=== PATIENT | female | born 1965 | race Two or more races ===

== ENCOUNTER 2020-06-21 07:15 | Emergency (ER) | payer OTHER ==
[~2020-06-21] VITALS: Ht 165.1 cm; Wt 88.5 kg
[2020-06-21] MEDS ORDERED: ATIVAN0.5 M1 PO (07:46)
[2020-06-21] MEDS ORDERED: PROTONIX40 MG PO (07:47)
[2020-06-21] MEDS ORDERED: NEURONTIN300 MG PO (07:47)
[2020-06-21] MEDS ORDERED: RESTORIL15 M1 PO (07:48)
[2020-06-21] MEDS ORDERED: INDERAL LA80 MG (07:48)
[2020-06-21] MEDS ORDERED: METFORMIN HCL1000 MG (07:50)
[2020-06-21] MEDS ORDERED: VOLTAREN100 GM (07:51)
[2020-06-21] MEDS ORDERED: ZESTORETIC 20-1 EAC1 (07:51)
[2020-06-21] MEDS ORDERED: WELLBUTRIN SR100 MG (07:52)
[2020-06-21] MEDS ORDERED: ZETIA10 MG (07:52)
[2020-06-21] MEDS ORDERED: BUTALBIT-ACETA1 EACH PO (13:09)
== END 2020-06-21 13:45 | disposition home or self-care (01) ==
LOC: ER 07:15
DX: S00.03XA Contusion of scalp, initial encounter (principal); S30.0XXA Contusion of lower back and pelvis, initial encounter; M54.2 Cervicalgia; W01.198A Fall on same level from slipping, tripping and stumbling with subsequent striking against other object, initial encounter; Y93.89 Activity, other specified; Y92.832 Beach as the place of occurrence of the external cause; Y99.8 Other external cause status

== ENCOUNTER 2023-09-25 08:00 | Outpatient (CLI) | payer OTHER ==
[~2023-09-25 08:00] MED LIST: ATIVAN0.5 M1 PO; BUTALBIT-ACETA1 EACH PO; INDERAL LA80 MG; METFORMIN HCL1000 MG; NEURONTIN300 MG PO; PROTONIX40 MG PO; RESTORIL15 M1 PO; VOLTAREN100 GM; WELLBUTRIN SR100 MG; ZESTORETIC 20-1 EAC1; ZETIA10 MG
[2023-09-25] MEDS ORDERED: LIPITOR40 M1 PO (12:49)
[2023-09-25] MEDS ORDERED: VOLTAREN (12:50)
[2023-09-25] MEDS ORDERED: CYMBALTA60 MG PO (12:51)
== END 2023-09-25 08:01 | disposition home or self-care (01) ==
LOC: LAB 08:00 → ADM 11:45 → EDSTATUS 09-29 11:45 → CIR.AMB 09-29 11:45 → EDSTATUS 10-01 11:45 → SURH 10-01 11:45
PROVIDERS: ATTEND Orthopaedic Surgery Orthopaedic Surgery of the Spine
DX: M50.022 Cervical disc disorder at C5-C6 level with myelopathy (principal); M50.023 Cervical disc disorder at C6-C7 level with myelopathy; U07.1 COVID-19; Z03.818 Encounter for observation for suspected exposure to other biological agents ruled out; Z20.828 Contact with and (suspected) exposure to other viral communicable diseases

== ENCOUNTER 2023-11-02 11:30 | Inpatient (IN) | payer OTHER ==
[~2023-11-02] VITALS: Ht 165.1 cm; Wt 86.6 kg
[~2023-11-02 11:30] MED LIST changes: +CYMBALTA60 MG PO; +LIPITOR40 M1 PO; +VOLTAREN
[2023-11-02 11:46] VITALS: BP 138/83
[2023-11-05] MEDS ORDERED: VANCOMYCIN HCL 1,000 MG VIAL ONE ×2 (06:25→08:15)
[2023-11-05] MEDS ORDERED: CEFAZOLIN SODIUM 1,000 MG VIAL ONE ×2 (06:26→16:34)
[2023-11-05] MEDS ORDERED: 0.9 % SODIUM CHLORIDE 1,000 ML IV SCH (07:30)
[2023-11-05] MEDS ORDERED: ENALAPRILAT DIHYDRATE 1.25 MG/ML VIAL IV PRN (07:30)
[2023-11-05] MEDS ORDERED: PROMETHAZINE HCL 50 MG/ML AMPUL IM PRN (07:30)
[2023-11-05] MEDS ORDERED: ISOPROPYL ALCOHOL 30 ML OUNCE TOP ONE (07:41)
[2023-11-05] MEDS ORDERED: PERCOCET 5-3251 EACH PO ×2 (07:41)
[2023-11-05] MEDS ORDERED: HEMOSTATIC MATRIX 1 KIT KIT TOP ONE (07:41)
[2023-11-05] MEDS ORDERED: COLACE100 MG PO ×2 (07:42)
[2023-11-05] MEDS ORDERED: MEDROLPACK PO ×2 (07:42)
[2023-11-05] MEDS ORDERED: METHYLPREDNISOLONE ACETATE 80 MG/ML VIAL ONE (08:09)
[2023-11-05] MEDS ORDERED: HEMOSTATIC MATRIX WITH THROMBIN KIT TOP ONE (08:10)
[2023-11-05] MEDS ORDERED: CEFAZOLIN SODIUM 1,000 MG in 0.9 % SODIUM CHLORIDE 50 ML IV SCH (09:00)
[2023-11-05] MEDS ORDERED: VANCOMYCIN HCL 1,000 MG VIAL IV SCH (09:00)
[2023-11-05] MEDS ORDERED: METHYLPREDNISOLONE SOD SUCC 125 MG VIAL IV SCH (09:00)
[2023-11-05] MEDS ORDERED: DOCUSATE SODIUM 100MG CAP PO SCH (09:00)
[2023-11-05] MEDS ORDERED: MORPHINE SULFATE 4 MG,MORPHINE SULFATE 2 MG IV SCH (09:00)
[2023-11-05] MEDS ORDERED: FAMOtidine 20 MG TABLET PO SCH (09:00)
[2023-11-05] MEDS ORDERED: METHYLPREDNISOLONE SOD SUCC 125 MG VIAL IV ONE ×2 (09:45)
[2023-11-05] MEDS ORDERED: MORPHINE SULFATE 4 MG/ML VIAL IV ONE ×2 (10:05→10:35)
[2023-11-05] MEDS ORDERED: METHYLPREDNISOLONE SOD SUCC 125 MG VIAL ONE (16:34)
[2023-11-05] MEDS ORDERED: LORazepam 0.5 MG TABLET PO SCH (17:00)
[2023-11-05 17:49] VITALS: O2SAT 98
[2023-11-05 19:00] VITALS: BP 123/76; O2SAT 95
[2023-11-06] MEDS ORDERED: SODIUM CHLORIDE 0.45 % 1,000 ML IV SCH
[2023-11-06 00:22] VITALS: O2SAT 96
[2023-11-06 01:06] VITALS: BP 115/63; O2SAT 97
[2023-11-06 04:50] VITALS: O2SAT 96
[2023-11-06] MEDS ORDERED: OxyCODONE HCL/APAP UD (PERCOCET) PO PRN (06:01)
[2023-11-06 08:00] VITALS: BP 139/70; O2SAT 98
[2023-11-06] MEDS ORDERED: TAMSULOSIN HCL 0.4 MG CAP PO SCH (09:00)
[2023-11-06] MEDS ORDERED: BUPROPION HCL 150 MG TABLET.SA PO SCH (09:00)
[2023-11-06] MEDS ORDERED: Duloxetine HCl 60 MG CAPSULE.DR PO SCH (09:00)
[2023-11-06] MEDS ORDERED: MetFORMIN HCL 1000 MG TABLET PO SCH (09:00)
[2023-11-06] MEDS ORDERED: ATORVASTATIN CALCIUM 40 MG TABLET PO SCH (09:00)
[2023-11-06 09:22] VITALS: O2SAT 98
== END 2023-11-06 13:15 | disposition home or self-care (01) | DRG 518 ==
LOC: O/R 11-05 05:40 → SURH 11-05 10:00
PROVIDERS: ADMIT Orthopaedic Surgery Orthopaedic Surgery of the Spine; ATTEND Orthopaedic Surgery Orthopaedic Surgery of the Spine
PROC: 4A1104G Monitoring of Peripheral Nervous Electrical Activity, Intraoperative, Open Approach (ICD-10-PCS; 2023-11-05)
PROC: 4A12X4Z Monitoring of Cardiac Electrical Activity, External Approach (ICD-10-PCS; 2023-11-05)
PROC: 0RR30JZ Replacement of Cervical Vertebral Disc with Synthetic Substitute, Open Approach (ICD-10-PCS; principal; 2023-11-05 10:00)
DX: M50.023 Cervical disc disorder at C6-C7 level with myelopathy (principal); M50.022 Cervical disc disorder at C5-C6 level with myelopathy